=== PATIENT | male | born 1975 | race Caucasian/White ===

== ENCOUNTER 2024-02-24 20:15 | Emergency (ER) | payer OTHER, SELFPAY ==
[2024-02-24 20:18] VITALS: BP 179/109; PULSE 75; TEMP 36.6; O2SAT 100; BMI 30.4
--- NOTE | 2024-02-24 20:28 | CT_ITS ---
The [address] [address] Patient Name: PATRICIA FRAGA MRN: [id number] date: 1975 Sex: M Assigned Patient Location: ER Current Patient Location: .[facility] Accession/Order Number: [id number] Exam Date: 02/24/2024 20:47 Report Date: 02/24/2024 22:04 At the request of: VANDA LA Procedure: CT abdomen pelvis wo con CT ABDOMEN PELVIS WITHOUT CONTRAST HISTORY: Left-sided flank pain. Groin pain x1 hour. History of renal stones. COMPARISON: None. TECHNIQUE: Thin section axial CT images were obtained from the lung bases to the pubis symphysis. This CT exam was performed using one or more of the following dose reduction techniques: Automated exposure control, adjustment of the mA and/or kV according to patient size, or use of iterative reconstruction technique. Thin section coronal and sagittal images were reconstructed from the axial data set. All images were reviewed and interpreted. CONTRAST: None. FINDINGS: Assessment of solid organs is limited without the benefit of IV contrast. LUNG BASES: The lung bases are clear. GE JUNCTION AND STOMACH: Negative. No hiatal hernia. LIVER: Negative. GALLBLADDER AND BILIARY TREE: Normal gallbladder. SPLEEN: Negative. PANCREAS: Negative. ADRENALS: Negative. RIGHT KIDNEY AND URETER: Negative. No urinary tract calculi or hydronephrosis. No renal masses or cysts are evident. LEFT KIDNEY AND URETER: There is a small acute retained calculus within the proximal left ureter measuring 2 mm causing mild upstream acute left hydroureteronephrosis. A left perinephric edema. No other calculi seen within the left kidney or elsewhere along the course of left ureter. SMALL BOWEL: Negative without enteritis or obstruction. LARGE BOWEL: Negative without colitis or obstruction or distention. No significant diverticulosis. APPENDIX: No active disease with normal appendix. AORTA: The abdominal aorta is normal size. IVC: Negative. LYMPH NODES: There is no lymphadenopathy. BLADDER: Normal bladder. BONES: Unremarkable. COMMENTS: No ascites or free air or loculated fluid. Prostate mildly enlarged. CT/CT abdomen pelvis wo con IMPRESSION: 1. Acute left-sided obstructive uropathy secondary to small 2 mm calculus within the proximal third left ureter causing mild left hydronephrosis. Correlate urine straining and urinalysis. 2. Mildly enlarged prostate.e Electronically authenticated by: ADILENE HOUSTON Date: 02/24/2024 22:04
--- NOTE | 2024-02-24 20:28 | ED.GENADUL1 ---
Documented by User: OG Laurent 02/24/24 21:53 HPI HPI - General Adult General Chief complaint: Urogenital-Male Stated complaint: KIDNEY/BACK PAIN Time Seen by Provider: 02/24/24 20:20 Source: patient Mode of arrival: Wheelchair Limitations: no limitations History of Present Illness HPI narrative: Patient is a 48-year-old male with a history of kidney stones in the past who presents to the ER for a 1 hour history of left flank pain radiating into the groin and testicles. He denies any fevers. He is actively vomiting at time of my evaluation. He has never needed a kidney stone removed surgically in the past. He denies any falls or injuries to the left flank or abdomen. He has not had any hematuria, urine specimen at the bedside shows dark brown urine. He has not had any diarrhea. No medications taken prior to arrival Related Data Home Medications ?Medication ?Instructions ?Recorded ?Confirmed diclofenac sodium 75 mg 75 mg PO BID 02/24/24 02/24/24 tablet,delayed release gabapentin 300 mg capsule 300 mg PO BID 02/24/24 02/24/24 Previous Rx's ?Medication ?Instructions ?Recorded ketorolac 10 mg tablet 10 mg PO Q8H PRN pain 1 day #10 02/24/24 tabs lidocaine 5 % topical patch 1 patch topical Q24H #15 ea 02/24/24 (Lidoderm) ondansetron 4 mg disintegrating 4 mg PO Q4H PRN nausea and 02/24/24 tablet vomiting 3 days #6 tabs oxycodone-acetaminophen 5 mg-325 1 tab PO Q4H PRN pain #10 tabs 02/24/24 mg tablet (Percocet) tamsulosin 0.4 mg capsule (Flomax) 0.4 mg PO DAILY 7 days #7 caps 02/24/24 Allergies Allergy/AdvReac Type Severity Reaction Status Date / Time seafood Allergy Severe Vomiting Uncoded 02/24/24 20:28 Opioid HPI Opioid Management Most Recent Opioid Data: Last Pain Scale 10 02/24/24 21:15 02/24/24 Review of Systems ROS Constitutional Denies: fever or chills Ears, nose, mouth, and throat Denies: throat pain or nasal congestion Cardiovascular Denies: chest pain Respiratory Denies: shortness of breath Gastrointestinal Reports: abdominal pain, nausea and vomiting; Denies: diarrhea Musculoskeletal Reports: back pain Integumentary/Breast Denies: rash Neurological Denies: numbness in extremities or weakness in extremities Hematologic/Lymphatic Denies: easy bruising or easy bleeding PFSH PFS Social History Little interest or pleasure in doing things: not at all Feeling down, depressed, or hopeless: not at all Exam Narrative Exam Narrative: Gen.: Awake, alert, in no distress, moderately uncomfortable male laying on his right side vomiting Head: Normocephalic, atraumatic ENT: Moist mucous membranes Respiratory: No respiratory distress, lungs clear bilaterally Cardio: Regular rate and rhythm Gastrointestinal: Abdomen is soft, nondistended and diffuse mild tenderness of the left flank and left lower quadrant of the abdomen with no CVA tenderness or guarding Extremities: Moves extremities equally Psych: Normal mood and affect Neuro: No focal neuro deficit Skin: Warm, dry, intact Constitutional Vital Signs, click to edit/add: Last Vital Signs Temp 97.8 F 02/24/24 20:18 Pulse 90 02/24/24 22:08 Resp 20 02/24/24 22:08 BP 143/74 H 02/24/24 22:08 Pulse Ox 99 02/24/24 22:08 O2 Del Method Room Air 02/24/24 20:18 Course Vital Signs Vital signs: Vital Signs Temperature 97.8 F 02/24/24 20:18 Pulse Rate 75 02/24/24 20:18 Respiratory Rate 20 02/24/24 20:18 Blood Pressure 179/109 H 02/24/24 20:18 Pulse Oximetry 100 02/24/24 20:18 Oxygen Delivery Method Room Air 02/24/24 20:18 Temperature 97.8 F 02/24/24 20:18 Pulse Rate 90 02/24/24 22:08 Respiratory Rate 20 02/24/24 22:08 Blood Pressure 143/74 H 02/24/24 22:08 Pulse Oximetry 99 02/24/24 22:08 Oxygen Delivery Method Room Air 02/24/24 20:18 Medical Decision Making MDM Narrative Medical decision making narrative: 2151: Patient was ordered to have 1 L of IV fluids, 1 mg IV Dilaudid, 30 mg IV Toradol and 4 mg IV Zofran. Laboratory studies including urine specimen showed no evidence of sepsis or acute kidney injury at this time. CT of the abdomen and pelvis is pending and case is turned over to attending physician for disposition at this time. SHARED APC VISIT, PHYSICIAN ATTESTATION: [id number] I performed a substantive part of the MDM during the patient?s E/M visit. I personally evaluated and examined the patient. I personally made or approved the documented management plan and acknowledge its risk of complications. Medical Records Medical records reviewed: Yes I reviewed the patient's medical records Lab Data Lab results reviewed: Yes I reviewed the patient's lab results Labs: Lab Results 02/24/24 02/24/24 Range/Units 20:30 21:15 WBC 8.9 (4.0-11.0) 10^3/uL RBC 4.57 L (4.70-6.10) 10^6/uL Hgb 14.9 (14.0-18.0) g/dL Hct 43.8 (42.0-54.0) % MCV 95.8 H (80.0-94.0) fL MCH 32.6 (25.9-34.0) pg MCHC 34.0 (29.9-35.2) g/dL RDW 12.4 (11.0-15.0) % Plt Count 344 (150-450) 10^3/uL MPV 9.8 (9.5-13.5) fL Neut % (Auto) 41.5 L (43.0-75.0) % Lymph % (Auto) 46.4 (20.5-60.0) % [place] % (Auto) 5.9 (1.7-12.0) % Eos % (Auto) 5.3 (0.9-7.0) % Baso % (Auto) 0.8 (0.2-2.0) % Neut # (Auto) 3.7 (1.4-6.5) 10^3/uL Lymph # (Auto) 4.2 H (1.2-3.8) 10^3/uL [place] # (Auto) 0.5 (0.3-0.8) 10^3/uL Eos # (Auto) 0.5 (0.0-0.7) 10^3/uL Baso # (Auto) 0.1 (0.0-0.1) 10^3/uL Abs Immat Gran (auto) 0.01 (0.00-0.03) 10^3/uL Imm/Tot Granulo (auto) 0.1 (0.0-0.5) % PT 10.5 (9.0-11.6) sec INR 0.99 Sodium 142 (136-145) mmol/L Potassium 3.6 (3.5-5.1) mmol/L Chloride 108 H (98-107) mmol/L Carbon Dioxide 24.5 (21.0-32.0) mmol/L Anion Gap 13.1 BUN 11.0 (7.0-18.0) mg/dL Creatinine 1.25 (0.70-1.30) mg/dL Est GFR ( Amer) >60 (>=60 mL/min/1.73m^2) Est GFR (Non-Af Amer) >60 (>=60 mL/min/1.73m^2) BUN/Creatinine Ratio 8.8 Glucose 133 H (74-106) mg/dL Lactate 2.0 (0.4-2.0) mmol/L Calcium 8.7 (8.5-10.1) mg/dL Total Bilirubin 0.3 (0.2-1.0) mg/dL AST 25 (15-37) U/L ALT 59 (16-63) U/L Alkaline Phosphatase 49 (46-116) U/L Total Protein 6.8 (6.4-8.2) g/dL Albumin 3.8 (3.4-5.0) g/dL Globulin 3.0 g/dL Albumin/Globulin Ratio 1.3 Urine Color Dk. yellow (YELLOW) Urine Clarity Cloudy A (CLEAR) Urine pH 5.0 (5.0-9.0) Ur Specific [place] >=1.030 A (1.005-1.025) Urine Protein 100 A (NEG/TRACE) mg/dL Urine Glucose (UA) Negative (NEGATIVE) mg/dL Urine Ketones Trace A (NEGATIVE) mg/dL Urine Occult Blood Large A (NEGATIVE) Urine Nitrite Negative (NEGATIVE) Urine Bilirubin Small A (NEGATIVE) Urine Urobilinogen 1.0 (0.2-1.0) EU/dL Ur Leukocyte Esterase Negative (NEGATIVE) Urine RBC >100 A (0-2) #/HPF Urine WBC 0-2 A (NONE SEEN) #/HPF Ur Squamous Epith Cells None seen (NONE/RARE) #/LPF Urine Crystals None seen (None Seen) #/HPF Urine Bacteria Small A (NONE SEEN) #/HPF Urine Casts None seen (NONE SEEN) #/LPF Urine Mucus Small A (NONE SEEN) Ur Culture Indicated? Yes Imaging Data CT scan - abdomen: Attestation: I have reviewed the pertinent imaging results. Radiologist's impression: ITS Impressions Abdomen/Pelvis CT 02/24/24 20:28 IMPRESSION: 1. Acute left-sided obstructive uropathy secondary to small 2 mm calculus within the proximal third left ureter causing mild left hydronephrosis. Correlate urine straining and urinalysis. 2. Mildly enlarged prostate.e Electronically authenticated by: ADILENE HOUSTON Date: 02/24/2024 22:04 Discharge Plan Discharge Chief Complaint: Urogenital-Male Clinical Impression: Acute left flank pain, Hematuria, Renal calculus, left Patient Disposition: Home, Self-Care Time of Disposition Decision: 22:49 Condition: Fair Prescriptions / Home Meds: New tamsulosin [Flomax] 0.4 mg capsule 0.4 mg PO DAILY 7 Days Qty: 7 0RF ketorolac 10 mg tablet 10 mg PO Q8H PRN (Reason: pain) 1 Days Qty: 10 0RF lidocaine [Lidoderm] 5 % adhesive patch,medicated 1 patch topical Q24H Qty: 15 0RF Rx Instructions: leave on most painful area for up to 12 hrs ondansetron 4 mg tablet,disintegrating 4 mg PO Q4H PRN (Reason: nausea and vomiting) 3 Days Qty: 6 0RF oxycodone-acetaminophen [Percocet] 5-325 mg tablet 1 tab PO Q4H PRN (Reason: pain) Qty: 10 0RF No Action gabapentin 300 mg capsule 300 mg PO BID diclofenac sodium 75 mg tablet,delayed release (DR/EC) 75 mg PO BID Print Language: Kazakh Instructions: Kidney Stones (ED), Renal Colic (ED), Hematuria (ED), How to Strain Your Urine (ED), Abdominal Pain (ED), Flank Pain (ED) Additional Instructions: Take Flomax daily. Drink up to 1 gallon of water a day to help produce urine to help flush out kidney stone. You hopefully should pass a stone in the next 4 to 5 days by drinking this amount of fluid. Use Zofran if needed for nausea and vomiting. Use Toradol for mild to moderate pain, use Percocet for severe pain. Follow-up with urology. If you are having intractable nausea, vomiting, pain, or any other acute concerns, return back to the ER Referrals: Josse Rivas MD [Physician] - 1 week Physician,Non-Staff, [Primary Care Provider] - 1 week Documented by User: Sebastian Marlow MD 02/24/24 22:55 HPI HPI - General Adult General Chief complaint: Urogenital-Male Stated complaint: KIDNEY/BACK PAIN Time Seen by Provider: 02/24/24 20:20 Related Data Home Medications ?Medication ?Instructions ?Recorded ?Confirmed diclofenac sodium 75 mg 75 mg PO BID 02/24/24 02/24/24 tablet,delayed release gabapentin 300 mg capsule 300 mg PO BID 02/24/24 02/24/24 Previous Rx's ?Medication ?Instructions ?Recorded ketorolac 10 mg tablet 10 mg PO Q8H PRN pain 1 day #10 02/24/24 tabs lidocaine 5 % topical patch 1 patch topical Q24H #15 ea 02/24/24 (Lidoderm) ondansetron 4 mg disintegrating 4 mg PO Q4H PRN nausea and 02/24/24 tablet vomiting 3 days #6 tabs oxycodone-acetaminophen 5 mg-325 1 tab PO Q4H PRN pain #10 tabs 02/24/24 mg tablet (Percocet) tamsulosin 0.4 mg capsule (Flomax) 0.4 mg PO DAILY 7 days #7 caps 02/24/24 Allergies Allergy/AdvReac Type Severity Reaction Status Date / Time seafood Allergy Severe Vomiting Uncoded 02/24/24 20:28 Opioid HPI Opioid Management Most Recent Opioid Data: Last Pain Scale 10 02/24/24 21:15 02/24/24 PFSH PFSH Social History Little interest or pleasure in doing things: not at all Feeling down, depressed, or hopeless: not at all Exam Constitutional Vital Signs, click to edit/add: Last Vital Signs Temp 97.8 F 02/24/24 20:18 Pulse 90 02/24/24 22:08 Resp 20 02/24/24 22:08 BP 143/74 H 02/24/24 22:08 Pulse Ox 99 02/24/24 22:08 O2 Del Method Room Air 02/24/24 20:18 Course Vital Signs Vital signs: Vital Signs Temperature 97.8 F 02/24/24 20:18 Pulse Rate 75 02/24/24 20:18 Respiratory Rate 20 02/24/24 20:18 Blood Pressure 179/109 H 02/24/24 20:18 Pulse Oximetry 100 02/24/24 20:18 Oxygen Delivery Method Room Air 02/24/24 20:18 Temperature 97.8 F 02/24/24 20:18 Pulse Rate 90 02/24/24 22:08 Respiratory Rate 20 02/24/24 22:08 Blood Pressure 143/74 H 02/24/24 22:08 Pulse Oximetry 99 02/24/24 22:08 Oxygen Delivery Method Room Air 02/24/24 20:18 Medical Decision Making MDM Narrative Medical decision making narrative: 2151: Patient was ordered to have 1 L of IV fluids, 1 mg IV Dilaudid, 30 mg IV Toradol and 4 mg IV Zofran. Laboratory studies including urine specimen showed no evidence of sepsis or acute kidney injury at this time. CT of the abdomen and pelvis is pending and case is turned over to attending physician for disposition at this time. SHARED APC VISIT, PHYSICIAN ATTESTATION: [id number] I performed a substantive part of the MDM during the patient?s E/M visit. I personally evaluated and examined the patient. I personally made or approved the documented management plan and acknowledge its risk of complications. 2220 patient stated that he did not have much pain relief from Dilaudid, Toradol, or Zofran. Patient was given a dose of morphine and another dose of Zofran prior to discharge. Patient did receive 1 L of IV fluid. Fluids were delayed secondary to patient continue to keep kinking his right arm and bending it. Education was done at bedside and treatment of kidney stones. Patient had kidney stones approximately 20 years ago. Patient was sent home with urine strainers. Patient was given prescription for Flomax, Zofran, Toradol and Percocet. Patient is referred to Dr. Rivas. Patient understands why to return back to the ER for intractable nausea, vomiting, pain, or any other acute complaints. Patient brother is driving him home. No questions at discharge. Patient is also aware of hematuria. Patient is aware that hematuria should improve when the kidney stone has passed. Patient understands if he continues to have hematuria after kidney stone passes, needs a follow-up with urology for further testing, scopes and procedures, patient understands this. Lab Data Labs: Lab Results 02/24/24 02/24/24 Range/Units 20:30 21:15 WBC 8.9 (4.0-11.0) 10^3/uL RBC 4.57 L (4.70-6.10) 10^6/uL Hgb 14.9 (14.0-18.0) g/dL Hct 43.8 (42.0-54.0) % MCV 95.8 H (80.0-94.0) fL MCH 32.6 (25.9-34.0) pg MCHC 34.0 (29.9-35.2) g/dL RDW 12.4 (11.0-15.0) % Plt Count 344 (150-450) 10^3/uL MPV 9.8 (9.5-13.5) fL Neut % (Auto) 41.5 L (43.0-75.0) % Lymph % (Auto) 46.4 (20.5-60.0) % [place] % (Auto) 5.9 (1.7-12.0) % Eos % (Auto) 5.3 (0.9-7.0) % Baso % (Auto) 0.8 (0.2-2.0) % Neut # (Auto) 3.7 (1.4-6.5) 10^3/uL Lymph # (Auto) 4.2 H (1.2-3.8) 10^3/uL [place] # (Auto) 0.5 (0.3-0.8) 10^3/uL Eos # (Auto) 0.5 (0.0-0.7) 10^3/uL Baso # (Auto) 0.1 (0.0-0.1) 10^3/uL Abs Immat Gran (auto) 0.01 (0.00-0.03) 10^3/uL Imm/Tot Granulo (auto) 0.1 (0.0-0.5) % PT 10.5 (9.0-11.6) sec INR 0.99 Sodium 142 (136-145) mmol/L Potassium 3.6 (3.5-5.1) mmol/L Chloride 108 H (98-107) mmol/L Carbon Dioxide 24.5 (21.0-32.0) mmol/L Anion Gap 13.1 BUN 11.0 (7.0-18.0) mg/dL Creatinine 1.25 (0.70-1.30) mg/dL Est GFR ( Amer) >60 (>=60 mL/min/1.73m^2) Est GFR (Non-Af Amer) >60 (>=60 mL/min/1.73m^2) BUN/Creatinine Ratio 8.8 Glucose 133 H (74-106) mg/dL Lactate 2.0 (0.4-2.0) mmol/L Calcium 8.7 (8.5-10.1) mg/dL Total Bilirubin 0.3 (0.2-1.0) mg/dL AST 25 (15-37) U/L ALT 59 (16-63) U/L Alkaline Phosphatase 49 (46-116) U/L Total Protein 6.8 (6.4-8.2) g/dL Albumin 3.8 (3.4-5.0) g/dL Globulin 3.0 g/dL Albumin/Globulin Ratio 1.3 Urine Color Dk. yellow (YELLOW) Urine Clarity Cloudy A (CLEAR) Urine pH 5.0 (5.0-9.0) Ur Specific [place] >=1.030 A (1.005-1.025) Urine Protein 100 A (NEG/TRACE) mg/dL Urine Glucose (UA) Negative (NEGATIVE) mg/dL Urine Ketones Trace A (NEGATIVE) mg/dL Urine Occult Blood Large A (NEGATIVE) Urine Nitrite Negative (NEGATIVE) Urine Bilirubin Small A (NEGATIVE) Urine Urobilinogen 1.0 (0.2-1.0) EU/dL Ur Leukocyte Esterase Negative (NEGATIVE) Urine RBC >100 A (0-2) #/HPF Urine WBC 0-2 A (NONE SEEN) #/HPF Ur Squamous Epith Cells None seen (NONE/RARE) #/LPF Urine Crystals None seen (None Seen) #/HPF Urine Bacteria Small A (NONE SEEN) #/HPF Urine Casts None seen (NONE SEEN) #/LPF Urine Mucus Small A (NONE SEEN) Ur Culture Indicated? Yes Imaging Data CT scan - abdomen: Radiologist's impression: ITS Impressions Abdomen/Pelvis CT 02/24/24 20:28 IMPRESSION: 1. Acute left-sided obstructive uropathy secondary to small 2 mm calculus within the proximal third left ureter causing mild left hydronephrosis. Correlate urine straining and urinalysis. 2. Mildly enlarged prostate.e Electronically authenticated by: ADILENE HOUSTON Date: 02/24/2024 22:04 Discharge Plan Discharge Chief Complaint: Urogenital-Male Clinical Impression: Acute left flank pain, Hematuria, Renal calculus, left Patient Disposition: Home, Self-Care Time of Disposition Decision: 22:49 Condition: Fair Prescriptions / Home Meds: New tamsulosin [Flomax] 0.4 mg capsule 0.4 mg PO DAILY 7 Days Qty: 7 0RF ketorolac 10 mg tablet 10 mg PO Q8H PRN (Reason: pain) 1 Days Qty: 10 0RF lidocaine [Lidoderm] 5 % adhesive patch,medicated 1 patch topical Q24H Qty: 15 0RF Rx Instructions: leave on most painful area for up to 12 hrs ondansetron 4 mg tablet,disintegrating 4 mg PO Q4H PRN (Reason: nausea and vomiting) 3 Days Qty: 6 0RF oxycodone-acetaminophen [Percocet] 5-325 mg tablet 1 tab PO Q4H PRN (Reason: pain) Qty: 10 0RF No Action gabapentin 300 mg capsule 300 mg PO BID diclofenac sodium 75 mg tablet,delayed release (DR/EC) 75 mg PO BID Print Language: Kazakh Instructions: Kidney Stones (ED), Renal Colic (ED), Hematuria (ED), How to Strain Your Urine (ED), Abdominal Pain (ED), Flank Pain (ED) Additional Instructions: Take Flomax daily. Drink up to 1 gallon of water a day to help produce urine to help flush out kidney stone. You hopefully should pass a stone in the next 4 to 5 days by drinking this amount of fluid. Use Zofran if needed for nausea and vomiting. Use Toradol for mild to moderate pain, use Percocet for severe pain. Follow-up with urology. If you are having intractable nausea, vomiting, pain, or any other acute concerns, return back to the ER Referrals: Josse Rivas MD [Physician] - 1 week Physician,Non-StaffMD [Primary Care Provider] - 1 week
[2024-02-24] MEDS: 0.9 % SODIUM CHLORIDE 1,000 ML 999 ML IV (21:11)
[2024-02-24 21:13] LABS: Basophils Absolute Auto 0.1 10^3/uL (0.0-0.1); Basophils Percent Auto 0.8 % (0.2-2.0); Eosinophils Absolute Auto 0.5 10^3/uL (0.0-0.7); Eosinophils Percent Auto 5.3 % (0.9-7.0); Hematocrit 43.8 % (42.0-54.0); Hemoglobin 14.9 g/dL (14.0-18.0); Immature Granulocytes Abs Auto 0.01 10^3/uL (0.00-0.03); Immature Granulocytes Pct Auto 0.1 % (0.0-0.5); Lymphocytes Absolute Auto 4.2 10^3/uL (1.2-3.8); Lymphocytes Percent Auto 46.4 % (20.5-60.0); Mean Corpuscular Hemoglobin 32.6 pg (25.9-34.0); Mean Corpuscular Volume 95.8 fL (80.0-94.0); Mean Platelet Volume 9.8 fL (9.5-13.5); Monocytes Absolute Auto 0.5 10^3/uL (0.3-0.8); Monocytes Percent Auto 5.9 % (1.7-12.0); Neutrophils Absolute Auto 3.7 10^3/uL (1.4-6.5); Neutrophils Percent Auto 41.5 % (43.0-75.0); Platelet Count 344 10^3/uL (150-450); Red Blood Count 4.57 10^6/uL (4.70-6.10); Red Cell Distribution Width 12.4 % (11.0-15.0); White Blood Count 8.9 10^3/uL (4.0-11.0)
[2024-02-24] MEDS: KETOROLAC TROMETHAMINE 30 MG/ML VIAL IVP (21:15)
[2024-02-24] MEDS: ONDANSETRON PF 4 MG/2 ML VIAL IV ×2 (21:15→23:01)
[2024-02-24] MEDS: HYDROMORPHONE HCL 1 MG/ML CARTRIDGE IV (21:15)
[2024-02-24 21:28] LABS: INR 0.99; Prothrombin Time 10.5 sec (9.0-11.6)
[2024-02-24 21:30] LABS: Alanine Aminotransferase 59 U/L (16-63); Albumin Globulin Ratio 1.3; Albumin Level 3.8 g/dL (3.4-5.0); Alkaline Phosphatase 49 U/L (46-116); Anion Gap 13.1; Aspartate Amino Transferase 25 U/L (15-37); BUN Creatinine Ratio 8.8; Bilirubin Total 0.3 mg/dL (0.2-1.0); Calcium 8.7 mg/dL (8.5-10.1); Carbon Dioxide 24.5 mmol/L (21.0-32.0); Chloride 108 mmol/L (98-107); Estimated GFR (African America >60 (>=60 mL/min/1.73m^2); Estimated GFR (Non-African Ame >60 (>=60 mL/min/1.73m^2); Glucose 133 mg/dL (74-106); Potassium 3.6 mmol/L (3.5-5.1); Sodium 142 mmol/L (136-145); Total Protein 6.8 g/dL (6.4-8.2)
[2024-02-24 21:31] LABS: Bilirubin Urine SMALL (NEGATIVE); Blood Urine LARGE (NEGATIVE); Clarity Urine CLOUDY (CLEAR); Color Urine DK. YELLOW (YELLOW); Glucose Urine UA NEGATIVE (NEGATIVE); Ketones Urine TRACE mg/dL (NEGATIVE); Leukocyte Esterase Urine NEGATIVE (NEGATIVE); Nitrite Urine NEGATIVE (NEGATIVE); Protein Urine 100 mg/dL (NEG/TRACE); Specific Gravity Urine >=1.030 (1.005-1.025); Urine Microscopic Indicated YES
[2024-02-24 21:40] LABS: WBC Urine 0-2 #/HPF (NONE SEEN)
[2024-02-24 21:41] LABS: Bacteria Urine SMALL #/HPF (NONE SEEN); Cast Seen? NONE SEEN #/LPF (NONE SEEN); Crystals Seen? None Seen #/HPF (None Seen); Mucus Urine SMALL (NONE SEEN); RBC Urine >100 #/HPF (0-2); Squamous Epithelial Cell Urine NONE SEEN #/LPF (NONE/RARE); Urine Culture Indicated YES
[2024-02-24 22:08] VITALS: BP 143/74; PULSE 90; O2SAT 99
[2024-02-24] MEDS: MORPHINE SULFATE 4 MG/ML VIAL IV (23:01)
[2024-02-24 23:12] VITALS: BP 147/97; PULSE 75; O2SAT 95
[2024-02-25 14:48] LABS: BOX Test Reference Lab FIRELANDS
== END 2024-02-24 23:14 | disposition home or self-care (01) ==
PROVIDERS: Physician Assistant; Emergency Provider Emergency Medicine
DX: N13.2 Hydronephrosis with renal and ureteral calculous obstruction (principal); Z87.442 Personal history of urinary calculi; R31.9 Hematuria, unspecified; R10.9 Unspecified abdominal pain
CPT/HCPCS: 36415; 74176; 80053; 81001; 83605; 85025; 85610; 87086; 96361; 96374; 96375; 96376; 99284; J1171; J1885; J2270; J2405